=== PATIENT | female | born 1985 | race Caucasian/White ===

== ENCOUNTER 2017-06-22 14:53 | Observation (INO) | payer OTHER ==
[2017-06-22] MEDS ORDERED: CEFAZOLIN 1 GM INJ (17:00)
[2017-06-22] MEDS ORDERED: ACETAMINOPHEN 325 MG TAB PO (17:30)
[2017-06-22] MEDS ORDERED: HYDROmorphONE 0.5 MG/0.5 ML SYG IV (17:30)
[2017-06-22] MEDS ORDERED: AL HYDROX/MG HYDROX/SIMETH 30 ML CUP PO (17:30)
[2017-06-22] MEDS ORDERED: OXYCODONE/ACETAMINOPHEN (10/325) TAB PO (17:30)
[2017-06-22] MEDS ORDERED: NALOXONE (0.4 MG/ML) INJ IV (17:30)
[2017-06-22] MEDS ORDERED: BISACODYL 10 MG SUPP PR (17:30)
[2017-06-22] MEDS ORDERED: MIDAZOLAM 1 MG/ML 2 ML INJ (17:47)
[2017-06-22] MEDS: BUPIVACAINE 0.25%/EPI (SDV) 30 ML INJ (18:38)
[2017-06-22] MEDS: POLYMYXIN/BACITRACIN 1L IRRIG (18:40)
[2017-06-22] MEDS: THROMBIN 5000 UNIT VIAL (18:41)
[2017-06-22] MEDS: SURGIFOAM POWDER 1 GM KIT (18:41)
[2017-06-22] MEDS ORDERED: ROCURONIUM 50 MG INJ (20:06)
[2017-06-22] MEDS ORDERED: PROPOFOL 20 ML (20:06)
[2017-06-22] MEDS ORDERED: GLYCOPYRROLATE 0.4 MG INJ (20:06)
[2017-06-22] MEDS ORDERED: LIDOCAINE 2% (SDV) 5 ML INJ (20:06)
[2017-06-22] MEDS ORDERED: NEOSTIGMINE 3 MG/3 ML SYRINGE (20:06)
[2017-06-22] MEDS ORDERED: ONDANSETRON 4 MG INJ (20:07)
[2017-06-22] MEDS ORDERED: HYDROmorphONE (0.2 MG/ML) 10ML SYG IV ×2 (20:37→21:00)
[2017-06-22] MEDS: HYDROmorphONE 0.2 MG/ML PCA IV (20:54)
[2017-06-22] MEDS: HYDROmorphONE (0.2 MG/ML) 10ML SYG IV (20:58)
[2017-06-22] MEDS: ONDANSETRON 4 MG INJ IV (20:58)
[2017-06-22] MEDS ORDERED: FENTAnyl 50 MCG/ML VIAL IV (21:00)
[2017-06-22] MEDS: DOCUSATE SODIUM 100 MG CAP PO (21:00)
[2017-06-22] MEDS ORDERED: MEPERIDINE 25 MG INJ IV (21:00)
[2017-06-22] MEDS ORDERED: DIPHENHYDRAMINE 50 MG INJ IV (21:00)
[2017-06-22] MEDS: SCOPOLAMINE 1.5 MG PATCH TRANSDERM ×2 (21:03→22:40)
[2017-06-22] MEDS: CEFAZOLIN 1 GM/50 ML (PMX) 50 ML IVPB (22:40)
[2017-06-22] MEDS: TOPIRAMATE 100 MG TAB PO (23:00)
[2017-06-22] MEDS: SPIRONOLACTONE 25 MG TAB PO (23:00)
[2017-06-22] MEDS: D5W-0.45 NACL + KCL 20 MEQ 1,000 ML IV (23:34)
[2017-06-22] MEDS: CARISOPRODOL 350 MG TAB PO (23:35)
[2017-06-22] MEDS: CEPASTAT LOZENGE MT (23:36)
[2017-06-23] MEDS: DIPHENHYDRAMINE 50 MG INJ IV (00:17)
[2017-06-23] MEDS: CEFAZOLIN 1 GM/50 ML (PMX) 50 ML IVPB ×2 (01:21→09:06)
[2017-06-23] MEDS: HYDROmorphONE 0.2 MG/ML PCA IV ×2 (01:34→09:02)
[2017-06-23] MEDS: DIPHENHYDRAMINE 25 MG CAP PO ×2 (02:50→14:28)
[2017-06-23] MEDS: PANTOPRAZOLE 40 MG INJ IV (06:00)
[2017-06-23] MEDS: SPIRONOLACTONE 25 MG TAB PO ×2 (06:04→17:28)
[2017-06-23] MEDS: CARISOPRODOL 350 MG TAB PO ×3 (06:53→17:28)
[2017-06-23] MEDS: D5W-0.45 NACL + KCL 20 MEQ 1,000 ML IV (07:30)
[2017-06-23] MEDS: TOPIRAMATE 100 MG TAB PO ×2 (08:12→21:06)
[2017-06-23] MEDS: BUPROPION (XL) 150 MG TAB PO (08:13)
[2017-06-23] MEDS: DOCUSATE SODIUM 100 MG CAP PO ×2 (08:13→21:06)
[2017-06-23] MEDS: SERTRALINE 50 MG TAB PO (08:13)
[2017-06-23] MEDS: OXYCODONE/ACETAMINOPHEN (10/325) TAB PO ×4 (09:14→22:40)
[2017-06-24] MEDS: CEPASTAT LOZENGE MT (00:04)
[2017-06-24] MEDS: OXYCODONE/ACETAMINOPHEN (10/325) TAB PO ×4 (03:09→15:27)
[2017-06-24] MEDS: PANTOPRAZOLE 40 MG INJ IV (05:05)
[2017-06-24] MEDS: DIPHENHYDRAMINE 25 MG CAP PO (05:05)
[2017-06-24] MEDS: SPIRONOLACTONE 25 MG TAB PO (05:06)
[2017-06-24] MEDS: BUPROPION (XL) 150 MG TAB PO (09:10)
[2017-06-24] MEDS: TOPIRAMATE 100 MG TAB PO (09:11)
[2017-06-24] MEDS: DOCUSATE SODIUM 100 MG CAP PO (09:11)
[2017-06-24] MEDS: SERTRALINE 50 MG TAB PO (09:11)
[2017-06-24] MEDS: CARISOPRODOL 350 MG TAB PO ×2 (10:02)
== END 2017-06-24 17:40 | disposition home or self-care (01) ==
LOC: SDS 14:53 → MS1 21:50
DX: M50.122 Cervical disc disorder at C5-C6 level with radiculopathy (principal); M50.123 Cervical disc disorder at C6-C7 level with radiculopathy; F41.8 Other specified anxiety disorders
CPT/HCPCS: 63075; 72052; 86850; 86900; 86901; 86999; 97116; 97162; 97530